=== PATIENT | male | born 2000 | race Caucasian/White ===

== ENCOUNTER → 2019-07-23 | Outpatient (CLI) | payer BC, OTHER ==
--- NOTE | 2019-07-23 16:18 | Diagnostic Imaging Report ---
INDICATION: Right elbow pain. AP, oblique, and lateral views of the right elbow were obtained. FINDINGS: No fracture or acute bony abnormality is seen. There is no elevation of the posterior fat pad. IMPRESSION: Negative right elbow. Dictated by: Dictated on workstation # [id number]
== END ==
LOC: RAD FS 11:42
PROVIDERS: ATTEND Nurse Practitioner
DX: M25.521 Pain in right elbow (principal)
CPT/HCPCS: 73080